=== PATIENT | male | born 1955 | race Caucasian/White ===

== ENCOUNTER 2023-11-19 07:00 | Day surgery (SDC) | payer OTHER, MEDICARE ==
[~2023-11-19 07:00] MED LIST: Bupivacaine 0.25% 10 ML SDV ONE; EPINEPHrine 1 MG/ML SDV ONE; Ketorolac 30 MG/ML SDV ONE; Lidocaine 1% 2 ML ONE; Midazolam 1 MG/ML 2 ML SDV ONE; Ondansetron 4 MG/2 ML SDV ONE; Propofol 200 MG/20 ML SDV ONE; Rocuronium 50 MG/5 ML Vial ONE; Ropivacaine 0.5% 5 MG/ML 30 ML SDV ONE; Sodium Chloride 0.9% 10 ML Syringe FLUSH PRN; Sodium Chloride 0.9% 10 ML Syringe FLUSH SCH; ceFAZolin 2 GM Vial ONE; fentaNYL 100 MCG/2 ML SDV ONE
[2023-11-19] MEDS ORDERED: Dexamethasone 4 MG/ML 5 ML MDV ONE (07:03)
[2023-11-19] MEDS ORDERED: dexmedeTOMIDine HCl 200 MCG/2 ML SDV ONE (07:03)
[2023-11-19] MEDS: Lactated Ringers 1,000 ML IV SCH (07:10)
[2023-11-19 07:44] LABS: INR 1.03; PROTHROMBIN TIME 10.9 SECONDS (9.7-12.0)
[2023-11-19] MEDS ORDERED: ePHEDrine 50 MG/ML SDV ONE (08:28)
[2023-11-19] MEDS ORDERED: Lactated Ringers 1,000 ML ONE (08:53)
[2023-11-19] MEDS: Vancomycin 1 GM SDV ONE (09:06)
[2023-11-19] MEDS: Tranexamic Acid 1,000 MG/10 ML Vial ONE (09:06)
[2023-11-19] MEDS ORDERED: Sugammadex Sodium 200 MG/2 ML VIAL IV ONE (09:25)
[2023-11-19] MEDS ORDERED: fentaNYL 100 MCG/2 ML SDV IVPUSH PRN (09:44)
[2023-11-19] MEDS ORDERED: HYDROmorphone 0.5 MG/0.5 ML Syringe IVPUSH PRN (09:44)
[2023-11-19] MEDS ORDERED: Acetaminophen/HYDROcodone 325-5 MG Tab PO PRN (10:03)
== END 2023-11-19 12:15 | disposition home or self-care (01) ==
LOC: JD.SDS 07:00
PROVIDERS: ATTEND Orthopaedic Surgery
DX: M19.011 Primary osteoarthritis, right shoulder (principal); M75.101 Unspecified rotator cuff tear or rupture of right shoulder, not specified as traumatic; I10 Essential (primary) hypertension; Z79.899 Other long term (current) drug therapy; Z88.5 Allergy status to narcotic agent
CPT/HCPCS: 23472; 36415; 64415; 76000; 85610; 85730; 97161; 97530; C1713; C1769; C1776; J0171; J0665; J0690; J1100; J1885; J2250; J2405; J2704; J2795; J3010; J3370; J3490; J7120; 01638

== ENCOUNTER 2023-11-20 09:47 | Emergency (ER) | payer OTHER, MEDICARE ==
[2023-11-20] MEDS ORDERED: Sodium Chloride 0.9% 10 ML Syringe FLUSH PRN (10:03)
[2023-11-20] MEDS: Sodium Chloride 0.9% 1,000 ML IV SCH (10:24)
[2023-11-20 10:50] LABS: BASOPHILS PERCENT AUTO 0.3 % (0.0-1.0); EOSINOPHILS ABSOLUTE AUTO 0.1 K/mm3 (0.0-0.4); EOSINOPHILS PERCENT AUTO 0.9 % (0.0-6.0); HEMATOCRIT 38.4 % (42.0-52.0); HEMOGLOBIN 12.7 gm/dl (14.0-18.0); IMMATURE GRAN ABSOLUTE AUTO 0.04 K/mm3 (0.00-0.05); IMMATURE GRAN PERCENT AUTO 0.3 % (0.0-0.4); LYMPHOCYTES PERCENT AUTO 17.3 % (24.0-44.0); MEAN CORPUSCULAR HEMOGLOBIN 30.8 pg (28.0-32.0); MEAN CORPUSCULAR HGB CONC 33.1 g/dl (32.0-36.0); MEAN CORPUSCULAR VOLUME 93.2 fl (83.0-99.0); MEAN PLATELET VOLUME 10.8 fl (9.4-12.4); MONOCYTES ABSOLUTE AUTO 1.3 K/mm3 (0.0-0.8); MONOCYTES PERCENT AUTO 11.4 % (0.0-8.0); NEUTROPHILS ABSOLUTE AUTO 8.1 K/mm3 (1.8-7.7); NEUTROPHILS PERCENT AUTO 69.8 % (41.0-71.0); PLATELET COUNT,PLT 185 K/mm3 (150-400); RED BLOOD CELL COUNT 4.12 M/mm3 (4.52-5.90); WHITE BLOOD CELL COUNT,WBC 11.55 K/mm3 (3.9-11.3)
[2023-11-20 11:15] LABS: A/G RATIO 0.9 (1-2); ALBUMIN 3.1 g/dl (3.4-5.0); ANION GAP 14.6 (5-15); BILIRUBIN TOTAL 0.3 mg/dL (0.2-1.0); BUN/CREATININE RATIO 11.4 (14-18); CALCIUM 8.2 mg/dL (8.5-10.1); CREATININE 1.4 mg/dL (0.7-1.3); EST CRCL DRUG DOSING (CG) 41.21 mL/min; POTASSIUM,K 3.6 mEq/L (3.5-5.1); PROTEIN TOTAL,TP 6.5 g/dl (6.4-8.2)
== END 2023-11-20 12:05 | disposition home or self-care (01) ==
LOC: JD.ED 09:47
DX: R55 Syncope and collapse (principal); T50.2X5A Adverse effect of carbonic-anhydrase inhibitors, benzothiadiazides and other diuretics, initial encounter; Z88.5 Allergy status to narcotic agent; Z79.899 Other long term (current) drug therapy
CPT/HCPCS: 36415; 80053; 84484; 85025; 93005; 96360; 99284-25; J7030